=== PATIENT | female | born 1980 | race Caucasian/White ===

== ENCOUNTER 2020-10-06 20:18 | Emergency (ER) | payer BC ==
--- NOTE | 2020-10-06 22:44 | EDM.PDOC ---
ED HPI GENERAL MEDICAL PROBLEM - General Chief Complaint: Lower Extremity Injury/Pain Stated Complaint: ANKLE INJURY Time Seen by Provider: 10/06/20 20:22 Source of Information: Reports: Patient History Limitations: Reports: No Limitations - History of Present Illness INITIAL COMMENTS - FREE TEXT/NARRATIVE: The patient is come in with pain in the right ankle. She took a fall but it was not a hard fall but in the process there was twisting motion. No other injury. No risk factors. This happened shortly before presentation to the ER. No treatment in the meantime. She cannot bear weight comfortably on that side. There is been no fever respiratory symptoms GI symptoms nausea vomiting or any other issue whatsoever. Patient is healthy and takes no medications. No chr onic conditions. She is a former smoker who quit several years ago. She does say she has rheumatoid arthritis but there is no clear evidence she actually has this. She also has had hypothyroidism. Apparently no treatment for that either. Right Ankle Pain Score (Numeric/FACES): 6 - Related Data Allergies Allergy/AdvReac Type Severity Reaction Status Date / Time No Known Allergies Allergy Verified 10/06/20 20:35 Past Medical History - Past Health History Medical/Surgical History: Denies Medical/Surgical History Musculoskeletal History: Reports: RA, Other (See Below) Other Musculoskeletal History: fx growth plate in R foot Endocrine/Metabolic History: Reports: Hypothyroidism Social & Family History - Tobacco Use Tobacco Use Status *Q: Former Tobacco User Used Tobacco, but Quit: Yes Month/Year Tobacco Last Used: 2004 - Caffeine Use Caffeine Use: Reports: Coffee - Recreational Drug Use Recreational Drug Use: No Review of Systems - Review of Systems Review Of Systems: Comprehensive ROS is negative, except as noted in HPI. ED EXAM, GENERAL - Physical Exam Exam: See Below Free Text/Narrative:: The patient is alert pleasant and does not appear unwell, no distress. Head normocephalic atraumatic. PERRLA EOMI. Neck is supple without jugular venous distention. Lungs are clear. Heart is regular. Abdomen soft nontender. There is no peripheral edema cyanosis or clubbing of the digits. Neurologically is grossly intact with fluent speech and no motor or sensory deficit. Skin is warm and dry with normal turgor. Affect and mood are light and appropriate. On examination of the right ankle there is some mild swelling. No discoloration. No open skin. No gross deformity. No instability. Course - Vital Signs Text/Narrative:: On imaging there is evidence of a tiny evulsion fracture distal tip of the right fibula. Patient will be discharged with a walking boot and crutches. Follow-up with local orthopedist. Strict precautions for return to ER. Last Recorded V/S: Last Vital Signs Temp 37.3 C 10/06/20 20:32 Pulse 88 10/06/20 20:32 Resp 18 10/06/20 20:32 BP 172/108 H 10/06/20 20:32 Pulse Ox 97 10/06/20 20:32 - Orders/Labs/Meds Orders: Active Orders 24 hr Category Date Time Status Ankle Min 3V Rt [CR] Stat Exams 10/06/20 20:35 Taken Foot Comp Min 3V Rt [CR] Stat Exams 10/06/20 20:36 Taken DME for Discharge [COMM] Stat Oth 10/06/20 22:35 Ordered Departure - Departure Time of Disposition: 22:44 Disposition: Home, Self-Care 01 Condition: Good Clinical Impression: Fracture, fibula Qualifiers: Encounter type: initial encounter Fibula location: distal physis (incl. Salter- Pisano) Fracture alignment: nondisplaced Laterality: right Qualified Code(s): S89.301A - Unspecified physeal fracture of lower end of right fibula, initial encounter for closed fracture - Discharge Information Referrals: Izzy Guzmán PA-C [Primary Care Provider] - Sánchez Hood MD [Physician] - Additional Instructions: Been seen for a fracture of your distal fibula. This is the slender bone on the outside of the leg. The fracture is very tiny nondisplaced and affecting only the tip of that bone. You are being put in a walking boot. Use crutches. No weightbearing on that side. Call tomorrow for an appointment with Dr. Hood local orthopedist. For any pain swelling fever or any undue discomfort return to the ER immediately. Keep the foot elevated above the height of the heart is much as possible for the next several days and whenever you are not getting around on crutches. Sepsis Event Note (ED) - Evaluation Sepsis Screening Result: No Definite Risk - Focused Exam Vital Signs: Vital Signs Temp Pulse Resp BP Pulse Ox 10/06/20 20:32 37.3 C 88 18 172/108 H 97 - My Orders Last 24 Hours: My Active Orders 10/06/20 20:35 Ankle Min 3V Rt [CR] Stat 10/06/20 20:36 Foot Comp Min 3V Rt [CR] Stat 10/06/20 22:35 DME for Discharge [COMM] Stat - Assessment/Plan Last 24 Hours: My Active Orders 10/06/20 20:35 Ankle Min 3V Rt [CR] Stat 10/06/20 20:36 Foot Comp Min 3V Rt [CR] Stat 10/06/20 22:35 DME for Discharge [COMM] Stat
--- NOTE | 2020-10-07 08:48 | CR ---
Right ankle: 4 views of the right ankle were obtained. Comparison: No previous ankle exam. Soft tissue swelling is seen. Small calcification is noted off the inferior fibula presumably representing minimal avulsion fracture. Ankle mortise is symmetric. No additional fracture is appreciated. Plantar spur is noted. Impression: 1. Minimal soft tissue calcification felt compatible with minimal cortical avulsion fracture. 2. Soft tissue swelling. 3. Plantar spur. Diagnostic code #3 I agree with preliminary report from [facility], finalized on 10/06/20, 11:18 PM CDT
--- NOTE | 2020-10-07 08:49 | CR ---
Right foot: 3 views of the right foot were obtained. Comparison: No prior foot study is available. Plantar spur is noted. Soft tissue swelling is seen laterally. No acute fracture or other bony abnormality is appreciated. Impression: 1. Soft tissue swelling and small plantar spur. 2. No acute osseous finding is seen on right foot exam. Diagnostic code #2 I agree with preliminary report from [facility], finalized on 10/06/20, 11:16 PM CDT
== END 2020-10-06 23:21 | disposition home or self-care (01) ==
LOC: JD.ED 20:18
DX: S89.301A Unspecified physeal fracture of lower end of right fibula, initial encounter for closed fracture (principal); Z87.891 Personal history of nicotine dependence; W10.9XXA Fall (on) (from) unspecified stairs and steps, initial encounter
CPT/HCPCS: 73610-26-RT; 73610-RT; 73630-26-RT; 73630-RT; 99283; 99283-25